=== PATIENT | female | born 1955 | race Caucasian/White ===

== ENCOUNTER 2017-10-29 06:00 | Day surgery (SDC) | payer OTHER ==
[~2017-10-29] VITALS: Ht 162.6 cm; Wt 99.8 kg
[~2017-10-29 06:00] MED LIST: ASPIR 8181 MG PO; ASPIRIN325 MG PO; GABAPENTIN300 MG PO; HYDROCHLOROTHIA25 MG PO; LEVOTHYROXINE100 MCG PO; MAGNESIUM400 M1 PO; MECLIZINE HCL25 MG PO; METOPROLOL SUC100 MG PO; OMEPRAZOLE20 MG PO; TYLENOL325 MG PO
[2017-10-29] MEDS ORDERED: VITAMIN B 12 IM (06:12)
--- NOTE | 2017-10-29 08:48 | NUR ---
10/29/17 0848 Meredith Terry 0834 PT ARRIVED AWAKE AND TALKING. REORIENTED TO PACU, PT DENINES PAIN AND NAUSEA. RESP EVEN AND UNLABORED. 0840 PT SPINAL LEVEL L-2.
[2017-10-29] MEDS ORDERED: PERCOCET 7.5-31 EACH PO (09:45)
--- NOTE | 2017-10-29 11:01 | NUR ---
1020 UP TO BSC VOIDS 400ML. ABLE TO STAND, SPINAL RESOLVED.
--- NOTE | 2017-10-29 11:02 | NUR ---
ATE SOUP AND SANDWICH, FEELS READY TO GO HOME.
--- NOTE | 2017-10-29 11:22 | NUR ---
USED BSC AGAIN BEFOREDISCHARGE. LLE STILL PRETTY NUMB. BOOT INTACT. DC INSTRUCTIONS EXPLAINED AND REVIEWED WITH PT. STATES SHE HAS BEEN ON PERCOCET BEFORE AND DOESNT HAVE ANY QUESTIONS ABOUT RX.
--- NOTE | 2017-10-29 12:04 | NUR ---
PT ALERT AND SUPPORTED BY HER FAMILY FOLLOWING SURGERY. PT HAD REQUESTED MY VISIT, BUT WAS UNABLE TO SEE PT BEFORE HER SURGERY. THEY ALL SEEMED INFORMED, AND EXPRESSED THEIR SATISFACTION WITH THE CARE THEY HAVE RECEIVED AT [facility]. VERY POSITIVE VISIT, PT REQUESTED PRAYER. WILL CONTINUE TO FOLLOW NEEDED
--- NOTE | 2017-11-05 07:09 | OR ---
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 PROCEDURE: Debridement of Achilles tendon followed by [id number] repair, FHL transfer, and excision of Carol Ann's deformity. ANESTHESIA: Spinal with sedation. SPECIMENS AND COMPLICATIONS: There were no specimens or complications. TOURNIQUET TIME: Tourniquet time was just about an hour. WHAT WAS DONE: The patient was taken to the operating room. After anesthesia was induced, the patient was placed in a prone position and all the bony prominences were padded. The left lower extremity was then positioned, prepped and draped in a routine sterile fashion. A straight vertical posterior incision was made over about the distal 10 cm of the heel cord. Skin was divided sharply. Subcutaneous tissue was divided. Bilaterally symmetric full-thickness flaps in the paratenon were incised in line with the skin incision and gently retracted. A longitudinal incision was then made through the heel cord splitting the fibers. Central portion of necrosis was about 20% of the tendon was then excised with a 15 blade. This was carried down to the insertion where there were some accessary ossicles and chronic inflammatory changes over the Carol Ann's deformity. These were excised sharply and we then used a 19 mm osteotome to remove the Carol Ann's deformity. The edges were then gently smoothed with a small rongeur. We then deepened the dissection and identified the FHL on the depths of the incision. The FHL was then identified and traced distally. By flexing the ankle and by flexing the hallux, we Electronically Signed By: CHRISSY BRADLEY MD 11/05/17 0709 PATIENT NAME: CHARAN LOU OPERATIVE REPORT DATE OF : 57 REPORT #: [id number] PHYSICIAN: CHRISSY BRADLEY MD PCP: NO PRIMARY CARE PHYSICIAN REPORT IS CONFIDENTIAL AND NOT TO BE RELEASED WITHOUT AUTHORIZATION [facility] [address] [place], [place] [address] Signed delivered a significant amount of FHL into the wound and then transected it. A whipstitch FiberWire was then placed in the free end of the FHL tendon. The FHL tendon was then sized to about 7 mm. A guide wire followed by a 6 mm reamer was placed to a depth of about 25 mm. We then put the foot in neutral dorsiflexion, tension the FHL and secured it with a single Bio-Tenodesis screw. Because of the amount of tendon that had been peeled back to access the Carol Ann's deformity, we then placed a single 5.5 BioComposite corkscrew anchor somewhat lateral to the FHL transfer site. We then used this to reinforce the insertion of the heel cord onto the posterior aspect of the calcaneus. We then gently irrigated the wound and closed the split in the Achilles and at the same time incorporated a portion of the FHL muscle belly into the repair to augment the vascular inflow to the anterior aspect of the heel cord. We then oversewed the heel cord repair with a 4-0 FiberWire. Routine wound closure was then accomplished and a sterile dressing followed by a bulky dressing with a generous heel pad was placed. She was then placed in a Cam walker boot in about 50 degrees of equinus. She was awakened and taken to the recovery room where she arrived in stable condition. Counts were correct and antibiotic protocols were followed. Chrissy Bradley MD WFB/MODL /[id number] Copies: ~ Electronically Signed By: CHRISSY BRADLEY MD 11/05/17 0709 PATIENT NAME: CHARAN LOU OPERATIVE REPORT DATE OF : 57 REPORT #: [id number] PHYSICIAN: CHRISSY BRADLEY MD PCP: NO PRIMARY CARE PHYSICIAN REPORT IS CONFIDENTIAL AND NOT TO BE RELEASED WITHOUT AUTHORIZATION
== END 2017-10-29 11:20 | disposition home or self-care (01) ==
LOC: OPS 06:00 → DS 06:00 → OPS 06:45
PROVIDERS: Orthopaedic Surgery
PROC: 0LXP0ZZ Transfer Left Lower Leg Tendon, Open Approach (ICD-10-PCS; 2017-10-29)
PROC: 0LQP0ZZ Repair Left Lower Leg Tendon, Open Approach (ICD-10-PCS; 2017-10-29)
PROC: 0QBM0ZZ Excision of Left Tarsal, Open Approach (ICD-10-PCS; principal; 2017-10-29 06:45)
DX: M76.62 Achilles tendinitis, left leg (principal); M92.62 Juvenile osteochondrosis of tarsus, left ankle; E78.00 Pure hypercholesterolemia, unspecified; E66.9 Obesity, unspecified; K21.9 Gastro-esophageal reflux disease without esophagitis; D64.9 Anemia, unspecified; G89.29 Other chronic pain; M54.9 Dorsalgia, unspecified; Z88.8 Allergy status to other drugs, medicaments and biological substances; Z79.82 Long term (current) use of aspirin; Z79.899 Other long term (current) drug therapy; Z98.84 Bariatric surgery status
CPT/HCPCS: 01472; 64445; 76942; C1713; J0690; J1100; J2250; J2704; J2795; J3010; J7120; L4386

== ENCOUNTER 2021-10-29 09:54 | Emergency (ER) | payer MEDICARE, OTHER ==
[~2021-10-29] VITALS: Ht 162.6 cm; Wt 101.2 kg
[~2021-10-29 09:54] MED LIST changes: +CEPHALEXIN500 MG PO; +PERCOCET 7.5-31 EACH PO; +TRAMADOL HCL50 MG PO; +VITAMIN B 12 IM
--- OUTSIDE RECORDS SUMMARY | 2021-10-29 09:56 | XMS ---
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 Jami VISIT COUNT (12 MO.) [address] TOTAL 4 NOTE: Visits indicate total known visits. ED/UCC VISIT TRACKING (12 MO.) 10/29/2021 09:55 [facility] [place] TYPE: Emergency COMPLAINT: - CHEST PAIN, NAUSEA, LIGHT HEADED 10/29/2021 08:01 [facility] [place] TYPE: Emergency COMPLAINT: - CHEST PAIN DIAGNOSES: - CHEST PAIN 05/08/2021 12:[facility] DIAGNOSES: - DIZZY - Acute cystitis without hematuria 02/06/2021 06:24 [facility] OR TYPE: Emergency DIAGNOSES: - LEFT ARM PAIN DUE TO FALL - Unspecified sprain of left wrist, initial encounter INPATIENT VISIT TRACKING (12 MO.) No inpatient visits to display in this time frame [email or web address]
[2021-10-29] MEDS ORDERED: ATORVASTATIN CA20 MG PO (10:08)
[2021-10-29] MEDS ORDERED: VENTOLIN HFA18 GM INH (10:08)
[2021-10-29] MEDS ORDERED: PAROXETINE HCL10 MG PO (10:08)
[2021-10-29] MEDS ORDERED: VITAMIN D21250 MCG (10:09)
--- NOTE | 2021-10-29 13:49 | EKG ---
[facility] [address] [facility] [place], [place] [address] Signed Normal sinus rhythm Septal infarct , age undetermined Abnormal ECG No previous ECGs available Confirmed by PARRIS BEYER MD ([id number]) on 10/29/2021 1:49:19 PM Electronically Signed By: PARRIS BEYER MD 10/29/21 1349 PATIENT NAME: CHARAN LOU Electrocardiogram DATE OF : 57 PHYSICIAN: PARRIS BEYER MD REPORT #: [id number] REPORT IS CONFIDENTIAL AND NOT TO BE RELEASED WITHOUT AUTHORIZATION
== END 2021-10-29 14:04 | disposition home or self-care (01) ==
LOC: ED 09:54
DX: R07.89 Other chest pain (principal); I71.2 Thoracic aortic aneurysm, without rupture; R74.01 Elevation of levels of liver transaminase levels; E03.9 Hypothyroidism, unspecified; D51.0 Vitamin B12 deficiency anemia due to intrinsic factor deficiency; Z88.8 Allergy status to other drugs, medicaments and biological substances; Z88.5 Allergy status to narcotic agent; Z79.82 Long term (current) use of aspirin; Z79.899 Other long term (current) drug therapy
CPT/HCPCS: 36415; 71275; 74174; 80053; 82553; 84484; 85025; 93005; 93010; 93971; 99285-25; J1885; J2270; J2405

== ENCOUNTER 2024-02-15 10:48 | Day surgery (SDC) | payer MEDICARE, OTHER ==
[~2024-02-15] VITALS: Ht 167.6 cm; Wt 93.2 kg
[~2024-02-15 10:48] MED LIST changes: +ATORVASTATIN CA20 MG PO; +CEFAZOLIN SODIUM 2 GM/20 ML SYR IV SCH; +CYCLOBENZAPRINE10 MG PO; +IBLOOD GLUCOSE TEST STRIP 1 EA TEST VI PRN; +LACTATED RINGER'S 1,000 ML IV SCH; +LIDOCAINE HCL 1% 5 ML SDV INJ ONE; +PAROXETINE HCL10 MG PO; +VENTOLIN HFA18 GM INH; +VITAMIN B-121000 MC2 SL; +VITAMIN D21250 MCG
[2024-02-15 11:31] VITALS: BP 135/7
[2024-02-15] MEDS ORDERED: propofoL 200 MG/20 ML VIAL ONE ×2 (12:12→13:23)
[2024-02-15] MEDS ORDERED: LIDOCAINE HCL 2% 20 MG/ML VIAL INJ ONE (12:12)
[2024-02-15] MEDS ORDERED: Ropivacaine HCl 0.5% 30 ML VIAL ONE (12:12)
[2024-02-15] MEDS ORDERED: DEXAMETHASONE SOD PHOS 4 MG/ML VIAL ONE (12:12)
[2024-02-15] MEDS ORDERED: TRIAMCINOLONE ACET 40 MG/ML VIAL 1 ML ONE (13:17)
[2024-02-15] MEDS ORDERED: SODIUM CHLORIDE 0.9% 0 ML IV ONE (13:17)
[2024-02-15] MEDS ORDERED: BUPIVACAINE HCL 0.25% 50 ML MDV ONE (13:17)
[2024-02-15] MEDS ORDERED: NALOXONE HCL 0.4 MG SYR IV PRN (14:30)
[2024-02-15] MEDS ORDERED: HYDROmorphone HCL 2 MG TAB PO PRN (14:30)
[2024-02-15] MEDS ORDERED: HYDROMORPHONE HC2 MG PO (14:34)
[2024-02-15 15:42] VITALS: BP 143/77
--- NOTE | 2024-02-15 15:55 | NUR ---
02/15/24 1555 Ester Novak 1427- PT ARRIVES TO PACU, SEMI MILIAN POSITION. AWAKE BUT DROWSY. LR HANGING TO RFA IV. PT HAS NO COMPLAINTS, DENIES PAIN AND NAUSEA. ABD SOFT, NON DISTENDED. ALL MONITORS IN PLACE. PLASTER SPLINT IN PLACE TO LEFT WRIST, CDI. ARM PLACED ON PILLOW AND ICE PACK APPLIED. 1435- PT SAT UP IN BED, REQUESTING WATER. ICE WATER PROVIDED. PT TOLERATING WELL. WILL CONTINUE TO MONITOR. PLAN TO D/C FROM PACU EXPLAINED TO PT. 1445- PT ASSISTED UP TO SIDE OF BED, DENIES DIZZINESS OR NAUSEA. PT HAS LITTLE CONTROL OVER LEFT ARM, WILL ASSIST WITH DRESSING. 1505- PT DRESSED AND READY TO GO HOME. VERBALIZED UNDERSTANDING OF INSTRUCTIONS. SALINE LOCK REMOVED, TIP INTACT, DRESSING APPLIED. SLING PLACED TO LEFT ARM. ALL BELONGINGS WITH PT. DAUGHTER PULLED CAR AROUND, PT TRANSFERRED TO WHEEL CHAIR STEADY ON FEET. PT TAKEN OUT TO CAR.
--- NOTE | 2024-02-16 15:25 | OR ---
[facility] [address] [place], [place] [address] Signed DATE OF OPERATION: 02/15/2024 SURGEON: Tree Rice MD PREOPERATIVE DIAGNOSIS: CMC arthrosis, bilateral. POSTOPERATIVE DIAGNOSIS: CMC arthrosis, bilateral. PROCEDURES PERFORMED: 1. Left CMC arthroplasty. 2. Right CMC injection. DEPLOYMENT ENGINEER: Chantel Garcia PA-C. ANESTHESIA: MAC with block. TOURNIQUET TIME: 48 minutes. IMPLANTS: Arthrex CMC screw. BRIEF HISTORY: Cheryl is a 68-year-old female, who has bilateral CMC arthrosis, left worse than right. Risks and benefits of operative treatment were discussed with her. We also discussed injection in the right wound while she was asleep. DESCRIPTION OF PROCEDURE: Once consent was obtained, she was taken to the operating room. After adequate anesthesia, she was placed on the operating room table. All downside pressure points were well padded. The left arm was placed in well-padded proximal arm tourniquet. The right CMC was then prepped with alcohol and injected with 1 mL 0.25% Marcaine, 1 mL Kenalog 40. The left arm was then prepped and draped in a standard sterile fashion. It was exsanguinated using Esmarch bandage. Tourniquet inflated to 200 mmHg. A curvilinear incision along the the thumb centered over the CMC joint was taken through skin and subcutaneous tissue. The capsule was then incised longitudinally Electronically Signed By: TREE RICE MD 02/16/24 1525 PATIENT NAME: CHERYL LOU OPERATIVE REPORT DATE OF : 57 REPORT #: [id number] PHYSICIAN: TREE RICE MD PCP: LEELEE RAY MD REPORT IS CONFIDENTIAL AND NOT TO BE RELEASED WITHOUT AUTHORIZATION [facility] [address] [place], [place] [address] Signed and elevated off the trapezium and the base of the 1st metacarpal. The capsule and ligaments were then elevated off the trapezium medially and laterally. The FCR was carefully retracted and protected. The trapezium was then split into multiple pieces using quarter inch straight osteotome. The bony pieces were then removed piecemeal. Once this was accomplished, the guide pin was placed across the base of the 1st metacarpal in an oblique fashion. This was overdrilled using the 4 mm reamer. The FCR tendon was then harvested proximally through a 1 cm stab incision and brought back down into the wrist. It was then split in half. The radial half was then taken through the base of the metacarpal, brought out the medial side and using the push-pull method was tightened. The screw was then placed into the tunnel with the tendon graft. The tendon graft was then sutured in a Pulvertaft weave configuration with #2-0 FiberWire and was made. This was then stuffed down to the joint. The wound was copiously irrigated with normal saline. The volar capsule was then closed using #2-0 Monocryl, the skin with 3-0 Stratafix and both wounds were Steri-Stripped with LiquiBand. The wounds were dressed with Allevyn dressing, sterile gauze and thumb spica splint. She tolerated the procedure well. All sponge, needle, and instrument counts were correct. Tree Rice MD BA/MODL /[id number] Copies: ~ Electronically Signed By: TREE RICE MD 02/16/24 1525 PATIENT NAME: CHERYL LOU OPERATIVE REPORT DATE OF : 57 REPORT #: [id number] PHYSICIAN: TREE RICE MD PCP: LEELEE RAY MD REPORT IS CONFIDENTIAL AND NOT TO BE RELEASED WITHOUT AUTHORIZATION
== END 2024-02-15 15:05 | disposition home or self-care (01) ==
LOC: DS 10:48
PROVIDERS: ATTEND Specialist
PROC: 0RQT0ZZ Repair Left Carpometacarpal Joint, Open Approach (ICD-10-PCS; principal; 2024-02-15 13:40)
DX: M19.042 Primary osteoarthritis, left hand (principal); M19.041 Primary osteoarthritis, right hand; K21.9 Gastro-esophageal reflux disease without esophagitis; Z88.5 Allergy status to narcotic agent
CPT/HCPCS: J0690; J1100; J2704; J2795; J3301; J7121

== ENCOUNTER 2024-08-01 20:26 | Emergency (ER) | payer OTHER, MEDICARE ==
[~2024-08-01] VITALS: Ht 165.1 cm; Wt 105.0 kg
[~2024-08-01 20:26] MED LIST changes: -CEFAZOLIN SODIUM 2 GM/20 ML SYR IV SCH; +HYDROMORPHONE HC2 MG PO; -IBLOOD GLUCOSE TEST STRIP 1 EA TEST VI PRN; -LACTATED RINGER'S 1,000 ML IV SCH; -LIDOCAINE HCL 1% 5 ML SDV INJ ONE
[2024-08-01] MEDS ORDERED: IBUPROFEN 800 MG TAB PO ONE (22:00)
[2024-08-01 23:00] VITALS: BP 131/77
== END 2024-08-01 23:04 | disposition home or self-care (01) ==
LOC: ED 20:26
DX: M23.92 Unspecified internal derangement of left knee (principal); S80.02XA Contusion of left knee, initial encounter; E03.9 Hypothyroidism, unspecified; E73.9 Lactose intolerance, unspecified; I10 Essential (primary) hypertension; Z88.5 Allergy status to narcotic agent; Z88.8 Allergy status to other drugs, medicaments and biological substances; Z79.82 Long term (current) use of aspirin; Z79.890 Hormone replacement therapy; Z79.899 Other long term (current) drug therapy; W01.0XXA Fall on same level from slipping, tripping and stumbling without subsequent striking against object, initial encounter
CPT/HCPCS: 73560; 99283; A9270

== ENCOUNTER 2024-11-21 05:45 | Day surgery (SDC) | payer MEDICARE, OTHER ==
[2024-11-15 11:14] VITALS: BP 156/95
[~2024-11-21] VITALS: Ht 165.1 cm; Wt 100.0 kg
[~2024-11-21 05:45] MED LIST changes: +LACTATED RINGER'S 1,000 ML IV SCH; +PHYSICIANS1000 MCG/1 INJ; -VITAMIN B-121000 MC2 SL
[2024-11-21 06:03] VITALS: BP 151/74
[2024-11-21] MEDS ORDERED: Ropivacaine HCl 20 MG/10 ML AMP ONE (06:03)
[2024-11-21] MEDS ORDERED: MIDAZOLAM HCL 2 MG/2 ML VIAL ONE (06:31)
[2024-11-21] MEDS ORDERED: propofoL 200 MG/20 ML VIAL ONE ×2 (06:31→08:31)
[2024-11-21] MEDS ORDERED: DEXAMETHASONE SOD PHOS 4 MG/ML VIAL ONE (06:31)
[2024-11-21] MEDS ORDERED: Ropivacaine HCl 0.5% 30 ML VIAL ONE (06:31)
[2024-11-21] MEDS ORDERED: LIDOCAINE HCL 2% 5 ML SDV ONE (06:31)
[2024-11-21] MEDS ORDERED: ondansetron HCL 4 MG/2 ML VIAL ONE (06:33)
[2024-11-21] MEDS ORDERED: SODIUM CHLORIDE 0.9% 20 ML IV ONE (06:33)
[2024-11-21] MEDS ORDERED: INTRA-ARTICULAR ANALGESIC INJECTION XX SCH (07:00)
[2024-11-21] MEDS ORDERED: CEFAZOLIN SODIUM 2 GM/20 ML SYR IV SCH ×2 (07:00→15:00)
[2024-11-21] MEDS ORDERED: IBLOOD GLUCOSE TEST STRIP 1 EA TEST VI PRN ×2 (07:00→07:45)
[2024-11-21] MEDS ORDERED: PANTOPRAZOLE SODIUM 40 MG TABEC PO SCH (07:00)
[2024-11-21] MEDS ORDERED: GABAPENTIN 600 MG TAB PO SCH (07:00)
[2024-11-21] MEDS ORDERED: OXYCODONE HCL 5 MG TAB PO SCH (07:00)
[2024-11-21] MEDS ORDERED: TRANEXAMIC ACID IN NACL,ISO-OS 1,000 MG/100 ML PIGGYBACK IV SCH ×2 (07:00→09:54)
[2024-11-21] MEDS ORDERED: LIDOCAINE HCL 1% 5 ML SDV INJ ONE (07:00)
[2024-11-21] MEDS ORDERED: KETOROLAC TROMETHAMINE 30 MG/ML VIAL IV PRN (07:00)
[2024-11-21] MEDS ORDERED: ROPIVACAINE IN 0.9% SOD CHL/PF 545 ML ELS.PMP.HR IRRIGATION SCH (07:00)
[2024-11-21] MEDS ORDERED: OXYCODONE HCL 5 MG TAB PO PRN (07:00)
[2024-11-21] MEDS ORDERED: VANCOMYCIN HCL 1,000 MG in DEXTROSE 5% 250 ML IV SCH (07:00)
[2024-11-21] MEDS ORDERED: ondansetron HCL 4 MG TAB PO SCH (07:00)
--- NOTE | 2024-11-21 07:28 | NUR ---
PT NOT AVAILABLE FOR VISIT. PROVIDED PRAYER.
[2024-11-21] MEDS ORDERED: LACTATED RINGER'S 1,000 ML IV ONE (07:39)
[2024-11-21] MEDS ORDERED: droPERidol 5 MG/2 ML VIAL IV PRN (07:45)
[2024-11-21] MEDS ORDERED: NALOXONE HCL 0.4 MG SYR IV PRN (07:45)
[2024-11-21] MEDS ORDERED: HYDROmorphone HCL 1 MG/ML SYR IV PRN (07:45)
[2024-11-21] MEDS ORDERED: fentaNYL citrate 50 MCG/ML SDV IV PRN (07:45)
[2024-11-21] MEDS ORDERED: PROCHLORPERAZINE EDISYLATE 10 MG/2 ML VIAL IV PRN (07:45)
[2024-11-21] MEDS ORDERED: ondansetron HCL 4 MG/2 ML VIAL IV PRN (07:45)
[2024-11-21] MEDS ORDERED: ACETAMINOPHEN 1,000 MG/100 ML VIAL ONE (07:46)
[2024-11-21] MEDS ORDERED: KETOROLAC TROMETHAMINE 30 MG/ML VIAL ONE (08:28)
[2024-11-21] MEDS ORDERED: SENNA LAX8.6 MG PO (08:52)
[2024-11-21] MEDS ORDERED: GABAPENTIN300 MG PO (08:52)
[2024-11-21] MEDS ORDERED: ACETAMINOPHEN500 MG PO (08:52)
[2024-11-21] MEDS ORDERED: CEFUROXIME250 MG PO (08:52)
[2024-11-21] MEDS ORDERED: ASPIRIN EC325 MG PO (08:53)
[2024-11-21] MEDS ORDERED: TRAMADOL HCL50 MG PO (08:55)
[2024-11-21] MEDS ORDERED: TRAMADOL HCL 50 MG TAB PO PRN (09:00)
--- NOTE | 2024-11-21 09:22 | NUR ---
11/21/24 0922 Zainab Marrero PATIENT LIFTS HER HEAD OFF THE PILLOW. SURGICAL BONNET IS REMOVED AND OXYGEN IS DISCONTINUED.
--- NOTE | 2024-11-21 09:31 | NUR ---
PT ARRIVES TO DS FROM PACU VIA STRETCHER. PT REPORTS NO PAIN AT THIS TIME, SPINAL AT BELLYBUTTON LEVEL. PT ABLE TO WIGGLE TOES WITHOUT DIFFICULTY AND ENCOURAGED TO DO FOOT PUMPS/TOES TO NOSE. DRESSING C/D/I, NO SIGNS OF BLEEDING AT THIS TIME. REPORT RECEIVED FROM DERRICK CACERES W/FAMILY AT BEDSIDE. PT AND FAMILY REPORT NO FURTHER QUESTIONS OR NEEDS AT THIS TIME, CALL LIGHT WITHIN REACH. PT ON RA W/O2 >90%, RESPIRATIONS EVEN AND UNLABORED.
[2024-11-21 09:34] VITALS: BP 123/60
--- NOTE | 2024-11-21 09:55 | NUR ---
PT REPORTS PAIN IS NOW AT 8/10 W/ACHEY SENSATION ABOVE LFT KNEE, AND SHARP/STABBING PAIN BELOW LFT KNEE. PT STATES SHE WOULD LIKE PRN PAIN MED, BUT ONLY W/VISCOUS LIDOCAINE BEFORE SWALLOWING. VO RECEIVED FROM MARICRUZ CORDERO. PHARMACY CALLED. CALL LIGHT WITHIN REACH, CRACKERS/PUDDING/ICE WATER PROVIDED. PT STATES NO FURTHER NEEDS OR QUESTIONS AT THIS TIME.
[2024-11-21] MEDS ORDERED: LIDOCAINE & ANTACID 35 ML BTL PO ONE (10:00)
[2024-11-21 10:33] VITALS: BP 142/67
--- NOTE | 2024-11-21 10:41 | NUR ---
IN PT ROOM FOR ASSESSMENT, VS, ADMIN OF PAIN PILL W/VISCOUS LIDOCAINE SUSPENSION. PT TOLERATES ORAL WELL. PT ATE 100% OF PUDDING AND CRACKERS W/OUT ONSET OF NAUSEA. PT STATES PAIN HAS INCREASED TO 9/10 IN SAME LOCATION. SPINAL RESOLVED, PT ABLE TO MOVE LLE WITHOUT DIFFICULTY. FAMILY REMAINS AT BEDSIDE. CALL LIGHT WITHIN REACH, PT STATES NO FURTHER NEEDS OR QUESTIONS AT THIS TIME.
--- NOTE | 2024-11-21 10:55 | NUR ---
LUNCH ORDER PLACED FOR PT. PT STATES NO FURTHER NEEDS/QUESTIONS AT THIS TIME. CALL LIGHT WITHIN REACH. FAMILY GOING TO GET COFFEE THEN WILL BE BACK.
--- NOTE | 2024-11-21 11:20 | NUR ---
IN PT ROOM FOR PAIN ASSESSMENT. PT STATES PAIN IS IMPROVING, BUT EXPRESSES URGE TO URINE VOID. PT SITS AT EDGE OF BED AND REPORTS NO NAUSEA OR DIZZINESS AT THIS TIME. PT SAFELY STAND/PIVOTS TO BC W/1PA VIA THIS RN. PT URINE VOIDS 425 ML OF CLEAR/YELLOW URINE AND IS BACK TO BED. WARM BLANKETS PROVIDED. EUNICE HOSE, FOOT PUMPS, CRYO CUFF, AND ONQ PUMP @[address] CALL LIGHT WITHIN REACH, PT STATES NO FURTHER NEEDS OR QUESTIONS AT THIS TIME.
[2024-11-21] MEDS ORDERED: LIDOCAINE HCL100 ML MT (11:23)
[2024-11-21 11:30] VITALS: BP 147/72
--- NOTE | 2024-11-21 11:50 | NUR ---
PT TO PHYSICAL THERAPY VIA WC, X2 DAUGHTERS ACCOMPANYING.
--- NOTE | 2024-11-21 12:10 | NUR ---
IN PT ROOM FOR POST PHYSICAL THERAPY EVALUATION. PT REPORTS PAIN HAS IMPROVED TO TOLERABLE LEVEL OF 5/10. NO ACUTE CHANGES FROM PREVIOUS ASSESSMENT TO SURGICAL SITE. PT CURRENTLY EATING LUNCH AND STATES SHE WOULD LIKE TO GET DRESSED AFTER THAT. VO RECEIVED FROM HANNAH CORDERO FOR PT DISCHARGE, MD UPDATED ON PT CONDITION AND PASSING OF ALL REQUIREMENTS.
[2024-11-21 12:22] VITALS: BP 145/70
--- NOTE | 2024-11-21 12:40 | NUR ---
DC EDUCATION PROVIDED TO PT AND X2 DAUGHTERS. ALL STATE VERBAL UNDERSTANDING AT THIS TIME AND NO FURTHER QUESTIONS. PT OFF OF UNIT VIA WC TO PASSENGER SIDE OF VEHICLE USING STAND/PIVOT. ALL PT BELONGINGS IN PT POSSESSION. ICE PACK PROVIDED FOR DRIVE HOME. PT AND X2 PT DAUGHTERS REPORT NO FURTHER NEEDS OR QUESTIONS AT THIS TIME.
[2024-11-21] MEDS ORDERED: ACETAMINOPHEN 500 MG TAB PO SCH (15:00)
[2024-11-21] MEDS ORDERED: GABAPENTIN 300 MG CAP PO SCH (15:00)
[2024-11-21] MEDS ORDERED: SENNOSIDES 1 TAB PO SCH (21:00)
[2024-11-22] MEDS ORDERED: cefuroxime axetiL 250 MG TAB PO SCH (09:00)
--- NOTE | 2024-11-25 06:52 | OR ---
[facility] [address] [place], [place] [address] Signed DATE OF OPERATION: 11/21/2024 SURGEON: Tree Rice MD PREOPERATIVE DIAGNOSIS: Left knee degenerative joint disease. POSTOPERATIVE DIAGNOSIS: Left knee degenerative joint disease. PROCEDURE PERFORMED: Left total knee arthroplasty with Yefri. RAILWAY SIGNAL ELECTRICIAN: Chantel Garcia PA-C. Chantel was present and critical for all portions of procedure. ANESTHESIA: Spinal. BLOOD LOSS: 175 mL. IMPLANTS: Virgen Triathlon size 6 femur, 5 tibia, 10 mm polyethylene and 32 mm patella. BRIEF HISTORY: Cheryl is a 69-year-old female with progressive worsening of osteoarthritis in her left knee. She had undergone prior right total knee many years ago and wished to proceed with the left. Risks, benefits, and alternatives were discussed with her at length and she understands and wished to proceed. DESCRIPTION OF PROCEDURE: Once consent was obtained, she was taken to the operating room. After adequate anesthesia, she was placed on the operating room table. All downside pressure points were well padded. The left hip was placed on a hip bump and the left leg was prepped and draped in a standard sterile fashion. The knee was approached through a standard anterior midline incision, carried through the skin and subcutaneous tissue. Medial and lateral skin flaps were developed and the knee was approached through a midvastus arthrotomy. The patella was mobilized laterally with significant difficulty due to Electronically Signed By: TREE RICE MD 11/25/24 0652 PATIENT NAME: CHERYL LOU OPERATIVE REPORT DATE OF : 57 REPORT #: [id number] PHYSICIAN: TREE RICE MD PCP: LEELEE RAY MD REPORT IS CONFIDENTIAL AND NOT TO BE RELEASED WITHOUT AUTHORIZATION [facility] [address] [place], [place] [address] Signed pre-existing patella baja. The patella was carefully mobilized and protected. We did go ahead and make the patellar cut and placed a on it. The MCL was elevated as a sleeve around the posteromedial corner. The infrapatellar fat pad was excised. The anterior horns of the menisci were essentially absent. The ACL was absent. The PCL was intact, however. The computer arrays for the Yefri system were placed in the distal femur and the proximal tibia. The leg was then registered with the computer followed by the fine anatomic points of the knee and then ligamentous balance was checked. The computer plan was then adjusted to address the patella baja and the medial tightness. Once this was completed, the robot was brought in. The four straight cuts and two angle cuts were made with care taken to protect the patellar tendon. The bony remnants were all removed as were any remaining osteophytes. The posterior osteophytes were removed off the femur. Posterior release was performed. The menisci removed in total. The trials were then positioned. Knee was taken from 0 to 130 degrees with good stability throughout. The patella tracked well. The patella was sized and drilled for a 32 mm patella. The distal femoral drill holes were completed and the proximal tibia was finished using the keel punch and the drill holes. The implants were then selected. The tibia was impacted until it was seated flush. The polyethylene was snapped into position. The femur was then impacted until it was seated flushed. The knee was extended and loaded. The patella was clamped into position until again it was seated flushed from the bone cut. There was good apposition noted. The knee was taken through range of motion. Again, the patella was well centered and stable. The periarticular soft tissue was injected with 75 mL of ropivacaine and Toradol mixture. The knee was washed out with one bottle of Surgiphor followed by normal saline. The On-Q pain pump was percutaneously introduced into the adductor canal from the suprapatellar pouch. The arthrotomy was then closed using a combination of #2 FiberWire and #2 Stratafix, subcutaneous tissue with 0 Stratafix and the skin with 3-0 Stratafix. The wound was then sealed with LiquiBand and Steri-Strips. The wound was dressed with Acticoat-7 dressing, ABD, and Lan wrap. She tolerated the procedure well. All sponge, needle, and instrument counts were correct. Tree Rice MD BA/MODL /[id number] Electronically Signed By: TREE RICE MD 11/25/24 0652 PATIENT NAME: CHERYL LOU OPERATIVE REPORT DATE OF : 57 REPORT #: [id number] PHYSICIAN: TREE RICE MD PCP: LEELEE RAY MD REPORT IS CONFIDENTIAL AND NOT TO BE RELEASED WITHOUT AUTHORIZATION [address] [address] Signed Copies: ~ Electronically Signed By: TREE RICE MD 11/25/24 0652 PATIENT NAME: CHERYL LOU OPERATIVE REPORT DATE OF : 57 REPORT #: [id number] PHYSICIAN: TREE RICE MD PCP: LEELEE RAY MD REPORT IS CONFIDENTIAL AND NOT TO BE RELEASED WITHOUT AUTHORIZATION
== END 2024-11-21 12:45 | disposition home or self-care (01) ==
LOC: DS 05:45
PROVIDERS: ATTEND Specialist
PROC: 0SRD0JZ Replacement of Left Knee Joint with Synthetic Substitute, Open Approach (ICD-10-PCS; principal; 2024-11-21 07:00)
DX: M17.12 Unilateral primary osteoarthritis, left knee (principal); K21.9 Gastro-esophageal reflux disease without esophagitis; D64.9 Anemia, unspecified; Z79.899 Other long term (current) drug therapy; Z88.5 Allergy status to narcotic agent; Z90.49 Acquired absence of other specified parts of digestive tract; Z90.710 Acquired absence of both cervix and uterus
CPT/HCPCS: 01400; 64447; 64450; 64454; 73560; 76942; 97161; 97530; A9270; C1713; C1776; J0131; J0690; J1100; J1885; J2003; J2250; J2405; J2704; J2795; J7121; J7999

== ENCOUNTER 2024-12-02 09:23 | Emergency (ER) | payer MEDICARE, OTHER ==
[~2024-12-02] VITALS: Ht 165.1 cm; Wt 103.1 kg
[~2024-12-02 09:23] MED LIST changes: +ACETAMINOPHEN500 MG PO; +ASPIRIN EC325 MG PO; +CEFUROXIME250 MG PO; -LACTATED RINGER'S 1,000 ML IV SCH; -LEVOTHYROXINE100 MCG PO; +LEVOTHYROXINE175 MCG PO; +LIDOCAINE HCL100 ML MT; +MAGNESIUM250 MG PO; -MAGNESIUM400 M1 PO; -METOPROLOL SUC100 MG PO; +METOPROLOL SUCC50 MG PO; +SENNA LAX8.6 MG PO
[2024-12-02] MEDS ORDERED: ONDANSETRON ODT4 MG PO (10:26)
[2024-12-02 10:46] LABS: BASOPHILS 0.7 % (0-2); EOSINOPHILS 1.9 % (0-6); HEMATOCRIT 36.8 % (35.0-50.0); HEMOGLOBIN 12.4 g/dL (12.0-18.0); LYMPHOCYTES 17.1 % (24-44); MCH 28.7 (27-36); MCHC 33.6 g/dl (30-36); MCV 85.6 fl (81-99); MONOCYTES 6.5 % (0-12); NEUTROPHILS 73.8 % (39-80); PLATELET COUNT 423 K/uL (140-440); RDW 14.9 (10.5-15.0)
[2024-12-02 10:56] LABS: INR 0.99 (0.80-1.30)
[2024-12-02 11:01] LABS: ALBUMIN 3.5 g/dL (3.4-5.0); ALBUMIN/GLOBULIN RATIO 1.06 (1.1-2.4); ANION GAP 9.9 (7-21); BILIRUBIN, TOTAL 0.4 mg/dL (0.2-1.0); CALCIUM 8.7 mg/dL (8.5-10.1); CREATININE, SERUM 0.8 mg/dL (0.55-1.02); POTASSIUM 3.9 mmol/L (3.5-5.1); PROTEIN, TOTAL 6.8 g/dL (6.4-8.2)
[2024-12-02 13:28] VITALS: BP 118/71
== END 2024-12-02 13:28 | disposition home or self-care (01) ==
LOC: ED 09:23
PROVIDERS: Emergency Medicine
DX: S20.212A Contusion of left front wall of thorax, initial encounter (principal); I10 Essential (primary) hypertension; W01.0XXA Fall on same level from slipping, tripping and stumbling without subsequent striking against object, initial encounter
CPT/HCPCS: 36415; 71250; 73560; 80053; 85025; 85610; 99284-25